=== PATIENT | male | born 1980 ===

== ENCOUNTER 2018-07-13 02:54 | Emergency (ER) | payer MEDICAID ==
[2018-07-13 03:01] VITALS: RESP 16; TEMP 96.9
[2018-07-13] MEDS ORDERED: KETOROLAC TROMETHAMINE 30 MG/ML SOL IV ONE (03:28)
[2018-07-13] MEDS ORDERED: SODIUM CHLORIDE 0.9% 1000ML 1,000 ML IV ONE (03:28)
[2018-07-13] MEDS ORDERED: KETOROLAC TROMETHAMINE 30 MG/ML SOL ONE (03:31)
[2018-07-13 05:13] VITALS: BP 137/93; PULSE 64; O2SAT 96
== END 2018-07-13 05:00 | disposition home or self-care (01) | DRG 103 ==
LOC: ED 02:54
DX: R51 Headache (principal)
CPT/HCPCS: 96365; 96374; 99283; 99284; J1885